=== PATIENT | male | born 1950 | race Caucasian/White ===

== ENCOUNTER 2018-08-05 08:43 | Outpatient (CLI) | payer MEDICARE, OTHER ==
--- NOTE | 2018-08-05 09:46 | MRI ---
MRI LUMBAR SPINE WITHOUT CONTRAST: 08/05/2018 HISTORY: Low back pain with bilateral lower extremity radiculopathy. COMPARISON: None. TECHNIQUE: Multiplanar, multisequence MR imaging of the lumbar spine provided without contrast media. FINDINGS: Secondary to congenitally short pedicles, there is diffuse central canal stenosis throughout the lumb ar spine. The sagittal STIR imaging demonstrates no focal area of osseous marrow edema. No significant anterolisthesis or retrolisthesis is noted. On the basis of 5 lumbar type vertebral bodies, the conus medullaris terminates at L1. T12-L1: Mild bilateral facet hypertrophy. There is disc space narrowing and disc desiccation. Ther e is mild central canal stenosis. No significant neural foraminal stenosis. L1-2: Bilateral facet hypertrophy. Mild central canal stenosis. Anterior osteophyte formation. No significant neural foraminal stenosis. L2-3: Bilateral facet hypertrophy. There is disc space narrowing and disc desiccation. Small disc osteophyte complex present. Moderate central canal stenosis. Moderate/severe right neural foraminal stenosis. Mild left neural foraminal stenosis. L3-4: Bilateral facet hypertrophy. Disc space narrowing and disc desiccation with small central dis c protrusion. Moderate/severe central canal stenosis. Mild/moderate bilateral neural foraminal stenosis, left greater than right. L4-5: Disc space narrowing and disc desiccation with mild disc bulge and moderate central canal sten osis. Bilateral facet hypertrophy. Mild right and moderate left neural foraminal stenosis. L5-S1: Disc space narrowing and disc desiccation with mild disc bulge and mild central canal stenosi s. Bilateral facet hypertrophy with moderate bilateral neural foraminal stenosis, right greater than left. Retroperitoneal structures demonstrate no acute findings. Incompletely imaged adrenal nodule noted, measuring 1.2 cm, on the left, medially. IMPRESSION: 1. Prominent multilevel lumbar spine degenerative change with congenitally short pedicles and multil evel central canal and neural foraminal stenosis, as detailed above. 2. Left adrenal nodule, incompletely assessed. Recommend further assessment via CT examination of a bdomen. Transcribed Date/Time: 08/05/2018 10:06 AM
== END 2018-08-05 08:44 | disposition home or self-care (01) ==
LOC: BICMRI 08:43
PROVIDERS: ATTEND Family Medicine
DX: M54.5 Low back pain (principal); M25.60 Stiffness of unspecified joint, not elsewhere classified; M50.90 Cervical disc disorder, unspecified, unspecified cervical region; M53.9 Dorsopathy, unspecified; M47.816 Spondylosis without myelopathy or radiculopathy, lumbar region
CPT/HCPCS: 72148

== ENCOUNTER 2018-08-21 09:56 | Outpatient (CLI) | payer MEDICARE, OTHER ==
--- NOTE | 2018-08-21 13:10 | CT ---
ABDOMEN CT SCAN WITHOUT IV CONTRAST: HISTORY: Left adrenal nodule. Followup lumbar spine MRI finding. FINDINGS: Noncontrast examination of the abdomen is performed. A 0.4 cm diameter subpleural solid nodule in th e right lower lobe. A 1 cm diameter poorly defined inadequately characterized low-attenuation mass i n the right lobe of the liver. Normal-appearing right adrenal gland. Minimal nodularity of the left adrenal gland with a 1.2 x 1.8 cm diameter nodular focus with a punctate calcification associated wi th this. The gallbladder, pancreas, and spleen appear unremarkable. The kidneys show no renal calcu lisa or acute obstruction. Minimal fat stranding in the central mesentery with some associated lym ph nodes, evidence for nonspecific mesenteric panniculitis. IMPRESSION: 1. A 1.2 x 1.8 cm nodule in the left adrenal gland, not a definite adenoma, with a punctate calcific ation, not fully characterized on this study. 2. Inadequately characterized small poorly defined low attenuation focus in the right lobe of the li chloe. A 0.4 cm diameter subpleural nodule in the right lower lobe. Minimal fat stranding in the central mesentery with some associated lymph nodes, evidence for possibl e mesenteric panniculitis. Depending upon the level of concern, followup additional imaging to include either with and without c ontrast multiphase CT with liver and/or adrenal mass protocol might give additional information. Ano ther consideration would be a 6-month followup study that could evaluate the multiple findings as abo ve. CODE LN
== END 2018-08-21 09:57 | disposition home or self-care (01) ==
LOC: BICCT 09:56
PROVIDERS: ATTEND Family Medicine
DX: E27.8 Other specified disorders of adrenal gland (principal); R91.1 Solitary pulmonary nodule
CPT/HCPCS: 74150

== ENCOUNTER 2019-02-25 12:43 | Outpatient (CLI) | payer MEDICARE, OTHER ==
[2019-02-25] MEDS ORDERED: Iopamidol-370 76% 500 ML 1 ML ONE (13:39)
--- NOTE | 2019-02-25 15:38 | CT ---
CT OF THE CHEST, ABDOMEN AND PELVIS WITH IV CONTRAST CT OF THE ABDOMEN WITHOUT IV CONTRAST 02/25/19 PROVIDED CLINICAL HISTORY: Pulmonary nodule. Left adrenal nodule. COMPARISON: CT abdomen 08/21/18. FINDINGS: CHEST: The heart, pericardium, and great vessels demonstrate an unremarkable CT appearance with the exceptio n of vascular calcification including minimal coronary calcium. The lungs are free of significant opa city. The previously described pulmonary nodule is no longer evident. The airway appears patent and o f normal caliber. No evidence for thoracic lymph node enlargement. No pleural fluid, pleural thickeni ng or pneumothorax apparent. ABDOMEN/PELVIS: There is a simple cyst in the right hepatic lobe posterior segment, a hemangioma within the right hep atic lobe posterior segment and a focal area of fatty infiltration involving the posterior segment of the right hepatic lobe. No concerning hepatic mass is evident. The previously described left adrenal nodule is redemonstrated, stable in size. This demonstrates pre contrast Hounsfield units of 22, postcontrast Hounsfield units of approximately 50 and Hounsfield uni ts on delayed imaging of approximately 29. There is a simple appearing cyst involving the right kidney. The solid abdominal organs demonstrate a n otherwise unremarkable CT appearance. There is no bowel dilatation, inflammatory fat stranding, free fluid or lymph node enlargement appare nt. The pelvis is suboptimally evaluated on the basis of extensive beam hardening artifact from bilat eral hip arthroplasties. The osseous structures demonstrate no concerning lytic or blastic lesions. IMPRESSION: 1. Left adrenal nodule previously described demonstrates CT washout characteristics compatible w ith benign adenoma. 2. Benign appearing liver lesions as described. 3. No evidence for pulmonary nodule. 4. Atherosclerosis including coronary calcium. POS: OFF
== END 2019-02-25 12:44 | disposition home or self-care (01) ==
LOC: BICCT 12:43
PROVIDERS: ATTEND Internal Medicine
DX: E27.9 Disorder of adrenal gland, unspecified (principal); K76.9 Liver disease, unspecified; R91.1 Solitary pulmonary nodule; E27.8 Other specified disorders of adrenal gland; I25.10 Atherosclerotic heart disease of native coronary artery without angina pectoris
CPT/HCPCS: 71260; 74178; Q9967

== ENCOUNTER 2019-09-29 10:03 | Outpatient (CLI) | payer MEDICARE, OTHER ==
--- NOTE | 2019-09-29 10:26 | RAD ---
Exam: 2 views lumbar spine HISTORY: Low back pain. Comparison none FINDINGS: AP and lateral weightbearing view of the lumbar spine demonstrate 5 lumbar type vertebra. N o fracture. Severe loss of disc space height, endplate sclerosis and osteophyte formation at L2-L3. Prominent anterior ossified formation at L1-L2. Spondylolisthesis: 4.7 mm of retrolisthesis of L2 upon L3, 4.4 mm retrolisthesis of L3 upon L4. Atherosclerosis of the aorta is identified On the AP projection, there is mild leftward curvature lumbar spine which may be positional. Hip prosthesis is noted and incompletely evaluated IMPRESSION: Grade 1 anterolisthesis of L2 upon L3 and L3 upon L4. Severe degenerative change at L2-L3 . Please refer to a lumbar spine MRI 08/05/2018 for further evaluation
== END 2019-09-29 10:04 | disposition home or self-care (01) ==
LOC: BICRAD 10:03
PROVIDERS: ATTEND Internal Medicine
DX: M54.5 Low back pain (principal); M47.816 Spondylosis without myelopathy or radiculopathy, lumbar region; M43.16 Spondylolisthesis, lumbar region
CPT/HCPCS: 36415; 72100; 80048; 83036; 86803

== ENCOUNTER 2022-06-21 16:30 | Observation (INO) | payer MEDICARE ==
[2022-06-21 17:00] VITALS: BMI 27.9
[2022-06-21] MEDS ORDERED: Ondansetron ODT 4 MG TAB PO PRN (17:24)
[2022-06-21] MEDS ORDERED: Acetaminophen 325 MG TAB PO PRN (17:24)
[2022-06-21] MEDS ORDERED: Ondansetron PF 4 MG/2 ML Vial IVP PRN (17:24)
[2022-06-21 18:40] LABS: Troponin I Less than 0.010 ng/mL (< 0.028)
[2022-06-21] MEDS ORDERED: QUETIAPINE FUMARATE 50 MG PO SCH ×2 (21:00)
[2022-06-21 21:09] LABS: Troponin I Less than 0.010 ng/mL (< 0.028)
[2022-06-21] MEDS ORDERED: Melatonin 3 MG TAB PO PRN (22:20)
[2022-06-21] MEDS ORDERED: QUEtiapine 25 MG TAB PO SCH (22:30)
[2022-06-22 05:49] LABS: #Eosinphils 0.2 thou/uL (0.0-0.7); #Monocytes 0.7 thou/uL (0.11-0.59); #Neutrophils 3.3 thou/uL (1.40-6.50); %Basophils 0.7 % (0.0-1.0); %Eosinophils 3.2 % (0.0-10.0); %Lymphocytes 32.7 % (21.0-51.0); %Monocytes 11.2 % (0.0-10.0); %Neutrophils 52.2 % (42.0-75.0); Hemoglobin 13.2 g/dL (14.0-18.0); Mean Corpuscular HGB CONC 32.8 g/dL (32.0-36.0); Mean Corpuscular Hemoglobin 31.5 pg (27.0-31.0); Mean Corpuscular Volume 96.1 fl (78.0-98.0); Mean Platelet Volume 7.8 fL (7.4-10.4); Platelet Count 224 10x3/uL (130-400); RBC Distribution Width 13.2 % (11.5-14.5); Red Blood Cell (RBC) Count 4.19 mill/uL (4.70-6.10); White Blood Cell (WBC) Count 6.2 10x3/uL (4.8-10.8)
[2022-06-22 06:06] LABS: Anion Gap 13 mmol/L (10-20); BUN (Urea Nitrogen) 10 mg/dL (8.4-25.7); Calc. Creatinine Clearance 123 mL/min (70-130); Calcium 9.2 mg/dL (7.8-10.44); Carbon Dioxide 24 mmol/L (23-31); Cardiac Risk 4.2 (Less than 4.5); Chloride 107 mmol/L (98-107); Cholesterol 143 mg/dl (< 200 Desired); Estimated GFR 98; Glucose 105 mg/dL (80-115); HDL Cholesterol 34 mg/dL (>60 Neg Risk); LDL Cholesterol, Calculated 90 mg/dL; Potassium 3.5 mmol/L (3.5-5.1); Sodium 140 mmol/L (136-145); Triglycerides 96 mg/dL (Less than 150)
[2022-06-22] MEDS ORDERED: Non-Formulary Item 1 EACH (Zinc Sulfate [Zinc] 50 MG Tablet) PO SCH (09:00)
[2022-06-22] MEDS ORDERED: Levothyroxine Sodium 25 MCG TAB PO SCH (09:00)
[2022-06-22] MEDS ORDERED: Aspirin Chewable 81 MG TAB PO SCH (09:00)
[2022-06-22] MEDS ORDERED: Aspirin 81 mg Enteric Coated Tablet PO SCH (09:00)
[2022-06-22] MEDS ORDERED: Cyanocobalamin (Vitamin B-12) 1,000 MCG TAB PO SCH (09:00)
[2022-06-22] MEDS ORDERED: Sertraline 100 MG TAB PO SCH (09:00)
[2022-06-22 09:32] VITALS: BP 140/86
[2022-06-22 09:36] VITALS: TEMP 97.3
[2022-06-24] MEDS ORDERED: FLU VACC QS2022-23(65YR UP)/PF 240 MCG/0.7 ML SYRINGE IM ONE (17:15)
== END 2022-06-22 12:34 ==
LOC: NEURO 16:30
PROVIDERS: ADMIT Family Medicine; ATTEND Family Medicine
DX: R07.9 Chest pain, unspecified (principal); F03.90 Unspecified dementia, unspecified severity, without behavioral disturbance, psychotic disturbance, mood disturbance, and anxiety; E03.9 Hypothyroidism, unspecified; I10 Essential (primary) hypertension; N40.0 Benign prostatic hyperplasia without lower urinary tract symptoms; I25.10 Atherosclerotic heart disease of native coronary artery without angina pectoris; Z66 Do not resuscitate; Z87.891 Personal history of nicotine dependence; Z79.82 Long term (current) use of aspirin; Z79.890 Hormone replacement therapy; Z79.899 Other long term (current) drug therapy
CPT/HCPCS: 80048; 80061; 84443; 84484 ×2; 85025; 94760; G0378 ×2; 36415